=== PATIENT | female | born 1990 | race Two or more races ===

== ENCOUNTER 2016-07-15 17:53 | Emergency (ER) | payer OTHER ==
[~2016-07-15] VITALS: Ht 162.6 cm; Wt 80.7 kg
[2016-07-15 18:05] VITALS: BP 127/76
== END 2016-07-15 18:49 | disposition home or self-care (01) ==
LOC: ED 17:53
DX: B07.9 Viral wart, unspecified (principal); J45.909 Unspecified asthma, uncomplicated

== ENCOUNTER 2018-06-19 09:49 | Emergency (ER) | payer OTHER ==
[~2018-06-19] VITALS: Ht 162.6 cm; Wt 57.6 kg
[2018-06-19 10:12] VITALS: Ht 162.6 cm; Wt 57.6 kg
[2018-06-19 12:53] VITALS: BP 116/73
== END 2018-06-19 12:53 | disposition home or self-care (01) ==
LOC: ED 09:49
DX: J32.9 Chronic sinusitis, unspecified (principal); L30.9 Dermatitis, unspecified; J45.909 Unspecified asthma, uncomplicated; R13.10 Dysphagia, unspecified
CPT/HCPCS: J1100